=== PATIENT | female | born 1970 | race Caucasian/White ===

== ENCOUNTER → 2016-08-27 | Outpatient (CLI) | payer OTHER ==
--- NOTE | 2016-08-27 16:53 | MA ---
Screening Digital Mammogram With Tomosynthesis Clinical Indications: Routine screening. Technique: Standard digital cephalocaudal and tomosynthesis mediolateral oblique projections were ob tained. The digital images were processed by the [employer] computer aided detection system. Comparison: July 2015 and May 2013. Breast density: C, the breast tissue is moderately dense and may obscure a small breast cancer. There is diffuse prominent ductal pattern. Findings: CAD was reviewed. There is a 1 cm round mass in the upper outer right breast. The remainder of the right and left breast are unremarkable. Impression: Right breast mass.. Recommendation: Ultrasound 800-9:00 right breast to differentiate cyst from solid.. BI-RADS 0. Additional imaging with ultrasound outer right breast [facility] will send a result letter to the patient. Negative mammography should not preclude additional workup of a clinically suspicious finding. The patient's information is entered into a reminder system with a target due date for her next mammo gram. 3
== END ==
LOC: FIMAGING 15:49
DX: Z12.31 Encounter for screening mammogram for malignant neoplasm of breast (principal); N63 Unspecified lump in breast
CPT/HCPCS: G0202

== ENCOUNTER → 2016-09-12 | Outpatient (CLI) | payer OTHER ==
--- NOTE | 2016-09-12 15:39 | US ---
Right Breast Ultrasound History: Evaluate nodular asymmetry identified in the upper breast on the screening tomographic study August 27, 2016. Technique: Longitudinal and transverse images were obtained utilizing a 15 MHz transducer. Color Dopp ler evaluation is employed for assessment of vascularity. Comparison is made to previous mammograms with the oldest one dated June 02, 2013. Findings: Prominent heterogeneous glandular tissue is noted at the 10 o'clock position. No discrete p alpable mass is identified on my physical examination. Sonographic interrogation demonstrates a well- circumscribed hypoechoic nodule measuring 8 x 7 mm and showing mild posterior acoustic enhancement. T his correlates to the nodule demonstrated on the tomographic study. Review of the older studies demon strates this nodule to have been present and unchanged mammographically since the 2012 study. Impression: Probably benign findings when considering mammographic and sonographic assessment, BI-RAD S 3. Recommendation: A 6-month sonographic follow up with continued clinical evaluation. I have reviewed this examination with Dr. Sheehan and he is in agreement with the interpretation a s well as the follow up recommendation. The findings and follow up and recommendations were reviewed with the patient in detail. She is comfo rtable with a 6-month interval follow up. She will continue breast self-examination and return for aging earlier if the physical exam changes. [facility] will send a result letter to the patient.
== END ==
LOC: FIMAGING 14:25
PROVIDERS: ATTEND Obstetrics & Gynecology
DX: R92.8 Other abnormal and inconclusive findings on diagnostic imaging of breast (principal)